=== PATIENT | female | born 1990 | race Caucasian/White ===

== ENCOUNTER 2017-12-06 13:11 | Emergency (ER) | payer OTHER ==
[2017-12-06 13:20] VITALS: BP 127/78
[2017-12-06] MEDS ORDERED: AMOXICILLIN/CLAVULANATE POT 875/125 MG TAB PO ONE (13:34)
--- NOTE | 2017-12-06 13:36 | EDPHY ---
H & P Time Seen by Provider: 12/06/17 13:27 HPI/ROS: CHIEF COMPLAINT: Cat bite and scratch HISTORY OF PRESENT ILLNESS: 27-year-old female works at the [employer] was assessing a feral cat on a bit her and scratched her right forearm shortly prior to arrival. Immunization status of the cat is unknown. The patient has had post exposure rabies prophylaxis as recently as 2010. The patient has up-to- date tetanus. Patient denies paresthesia or sensory or motor deficit. PRIMARY CARE PROVIDER: REVIEW OF SYSTEMS: A ten point review of systems was performed and is negative with the exception of the items mentioned in the HPI PHYSICAL EXAM (Prior to examination, patient consented to physical exam, hands were washed and my usual and customary physical exam procedures followed) 1) GENERAL: Well-developed, well-nourished, alert and oriented. Appears to be in no acute distress. 2) HEAD: Normocephalic 3) HEENT: sclera anicteric 4) LUNGS: Breathing comfortably. 5) SKIN: Right proximal forearm volar asked of multiple scratches and abrasions on the which appear infected. Multiple puncture wounds on the which appear infected. Soft compartments. None of these injuries are near a joint. 6) MUSCULOSKELETAL: Neurovascularly intact. 7) NEUROLOGIC: Radial ulnar median nerve function intact distally. Smoking Status: Never smoked Constitutional: Initial Vital Signs Temperature (C) 36.6 C 12/06/17 13:15 Heart Rate 84 12/06/17 13:15 Respiratory Rate 18 12/06/17 13:15 Blood Pressure 127/78 H 12/06/17 13:15 O2 Sat (%) 97 12/06/17 13:15 O2 Delivery Mode Room Air Allergies/Adverse Reactions: acetaminophen [From Percocet] Allergy (Verified 12/06/17 13:15) oxycodone [From Percocet] Allergy (Verified 12/06/17 13:15) Home Medications: Medication Instructions Recorded Amoxicillin/Clavulanate Pot 875 mg PO BID #14 tab 12/06/17 [Augmentin 875 mg tab] MDM/Departure - MDM ED Course/Re-evaluation: 1:30 p.m.: The cat that bit and scratched the patient is a feral cat is still available for quarantine and observation. Research conducted by myself in [employer], algorithm for post exposure prophylaxis. Recommend cat be quarantined and observated for 10 days and if cat remains asymptomatic no post exposure prophylaxis indicated. If cat has symptoms consistent with rabies during that time, recommend testing animal and start post exposure prophylaxis, discontinue post exposure prophylaxis if testing is negative. Discussed with patient and she feels comfortable with this plan. - Depart Disposition: Home, Routine, Self-Care Clinical Impression: Cat scratch of right forearm Qualifiers: Encounter type: initial encounter Qualified Code(s): S50.811A - Abrasion of right forearm, initial encounter Cat bite of right forearm Qualifiers: Encounter type: initial encounter Qualified Code(s): S51.851A - Open bite of right forearm, initial encounter Condition: Good Instructions: Animal Bite (ED) Additional Instructions: Return to the ER if you develop redness, swelling, discharge, warmth to the wound, red streaks going up your arm, or any other symptoms that concern you. Stand Alone Forms: Work Comp Follow Up Prescriptions: Amoxicillin/Clavulanate Pot [Augmentin 875 mg tab] 875 mg PO BID #14 tab Referrals: Follow-up, with your work comp provider in 2 days [Other] - As per Instructions
== END 2017-12-06 14:02 | disposition home or self-care (01) ==
DX: S51.851A Open bite of right forearm, initial encounter (principal); S50.811A Abrasion of right forearm, initial encounter; W55.01XA Bitten by cat, initial encounter; Y99.0 Civilian activity done for income or pay; Y93.89 Activity, other specified